=== PATIENT | female | born 1970 | race Caucasian/White ===

== ENCOUNTER 2019-10-01 13:18 | Emergency (ER) | payer OTHER ==
--- NOTE | 2019-10-01 15:26 | ED ---
Respiratory - HPI Summary HPI Summary: 49-year-old female presents with cough for the past couple days. She still very fatigued for the past 10 days. States she did come back from [facility] 3 weeks ago. She works at [employer]. Patient is exposed to a lot of people. She's been having fevers the past couple days. Has been having occasionally shortness breath. No chest pain. She's been dizzy and has sore throat. she admits to sinus congestion. - History of Current Complaint Chief Complaint: EDUpperRespComplaint Stated Complaint: SHORT OF BREATH PER EMS Time Seen by Provider: 10/01/19 13:22 Pain Intensity: 7 - Allergy/Home Medications Allergies/Adverse Reactions: Allergies Allergy/AdvReac Type Severity Reaction Status Date / Time Penicillins Allergy Rash Verified 10/01/19 13:31 Sulfa (Sulfonamide Allergy Rash Verified 10/01/19 13:31 Antibiotics) bioxin Allergy Swelling Uncoded 10/01/19 13:31 Of Face,Lips,& Throat PMH/Surg Hx/FS Hx/Imm Hx Endocrine/Hematology History: Denies: Hx Anticoagulant Therapy Respiratory History: Denies: Hx Asthma Infectious Disease History: No Infectious Disease History: Denies: Traveled Outside the [place] in Last 30 Days - Family History Known Family History: Positive: Non-Contributory - Social History Substance Use Type: Reports: None Smoking Status (MU): Never Smoked Tobacco Review of Systems Positive: Fever Negative: Chest Pain Positive: Shortness Of Breath, Cough All Other Systems Reviewed And Are Negative: Yes Physical Exam Triage Information Reviewed: Yes Vital Signs On Initial Exam: Initial Vitals Temp Pulse Resp BP Pulse Ox 98.4 F 64 16 107/81 95 10/01/19 13:27 10/01/19 13:27 10/01/19 13:27 10/01/19 13:27 10/01/19 13:27 Vital Signs Reviewed: Yes Appearance: Positive: Well-Appearing Skin: Positive: Warm, Dry Head/Face: Positive: Normal Head/Face Inspection Eyes: Positive: Normal, EOMI, GILMA, Conjunctiva Clear ENT: Positive: Normal ENT inspection, Pharynx normal, TMs normal Respiratory/Lung Sounds: Positive: Clear to Auscultation, Breath Sounds Present Cardiovascular: Positive: Normal, RRR Abdomen Description: Positive: Nontender, Soft Bowel Sounds: Positive: Present Musculoskeletal: Positive: Normal Neurological: Positive: Normal Psychiatric: Positive: Normal Procedures - Sedation Patient Received Moderate/Deep Sedation with Procedure: No Diagnostics - Vital Signs Vital Signs Temp Pulse Resp BP Pulse Ox 10/01/19 13:27 98.4 F 64 16 107/81 95 - Laboratory Lab Statement: Any lab studies that have been ordered have been reviewed, and results considered in the medical decision making process. - Radiology chest Radiology Interpretation Completed By: Radiologist Summary of Radiographic Findings: IMPRESSION: NO ACTIVE CARDIOPULMONARY DISEASE IS NOTED. Disposition - Course Course Of Treatment: 49-year-old female presents with cough for the past couple days. She still very fatigued for the past 10 days. States she did come back from [facility] 3 weeks ago. She works at [employer]. Patient is exposed to a lot of people. She's been having fevers the past couple days. Has been having occasionally shortness breath. No chest pain. She's been dizzy and has sore throat. she admits to sinus congestion. On exam lungs clear auscultation. Pharynx normal. Chest x-ray normal. sent testing for covid. Told to treat supportively and to isolate self. Patient understands and agrees with plan. - Differential Dx - Cardiopulmonary Differential Diagnoses - Cardiopulmonary: Bronchitis, Influenza, Lower Resp Infection - Diagnoses Provider Diagnoses: Viral syndrome Discharge ED - Sign-Out/Discharge Documenting (check all that apply): Patient Departure - Discharge Plan Condition: Good Disposition: HOME Forms: COVID-19 Tested & Isolation Referrals: No Primary Care Phys,NOPCP [Primary Care Provider] - Additional Instructions: You have been tested for coronavirus. The department of health will contact you with results when available and with any additional instruction. You should stay in your house and self quarantine. You should wear a mask if you're outside of your personal room. We encourage handwashing as well as limited contact with other people. Use tyenlol every 6 hours for fever Drink plenty of fluids and rest Return to ED if develop severe shortness of breath or any new or worsening symptoms - Billing Disposition and Condition Condition: GOOD Disposition: Home - Attestation Statements Provider Attestation: I was available for consultation for this patient. I did not evaluate the patient or participate in any medical decision making or disposition decisions unless I am specifically named in the chart as having consulted on the patient. If I have consulted on the patient, please see my own ED note on the patient encounter. Razia Parra MD
[2019-10-01 16:04] VITALS: BP 109/61
[2019-10-01] MEDS ORDERED: O ndansetron ODT 4MG 5TAB PRPK 4 MG PAK PO ONE ×2 (16:10)
[2019-10-01 16:45] LABS: Influenza A Molecular Negative (Negative); Influenza B Molecular Negative (Negative)
== END 2019-10-01 16:03 | disposition home or self-care (01) ==
LOC: ED 13:18
DX: B34.9 Viral infection, unspecified (principal); R06.02 Shortness of breath; Z20.828 Contact with and (suspected) exposure to other viral communicable diseases; Z88.1 Allergy status to other antibiotic agents; Z88.0 Allergy status to penicillin; Z88.2 Allergy status to sulfonamides
CPT/HCPCS: 71045; 99281; A9270-GY; U0002

== ENCOUNTER 2019-10-12 10:23 | Emergency (ER) | payer OTHER ==
--- NOTE | 2019-10-12 11:38 | UC ---
General HPI - HPI Summary HPI Summary: 49yo female presenting with complaint of being "sick for 3 weeks." Notes "extreme exhaustion," nausea, "terrible sore throat," and fevers. States fevers up to 99.9 at home. Denies nasal congestion and cough. Denies sob and wheezing. Denies chest pain/discomfort. Denies v/d and abdominal pain. Notes decreased appetite. Patient states she was seen in [facility] on 10/01/2019 for sob, dizziness, and fevers. She tested negative for covid and flu that day with negative CXR as well. Patient states she was sick for approx 12 days prior to ED visit and has just been worsening. She adds that she called her pcp via telemedicine on 2019 who prescribed her levaquin. States she is on day 6 of 7 day treatment and has not felt better at all. Patient states before symptom onset, she was active , working out, eating well, etc. States she now "feels lethargic" and is now becoming "depressed and anxious" since isolation for covid started. States she is from [place], does not have family or friends here, and is now losing her job at [employer] in November. Patient states this is making her symptoms worse. - History of Current Complaint Chief Complaint: UCGeneralIllness Stated Complaint: RESP COMPLAINT Time Seen by Provider: 10/12/19 10:39 Hx Obtained From: Patient Hx Last Menstrual Period: 10/02/19 - Allergy/Home Medications Allergies/Adverse Reactions: Allergies Allergy/AdvReac Type Severity Reaction Status Date / Time Penicillins Allergy Rash Verified 10/12/19 10:44 Sulfa (Sulfonamide Allergy Rash Verified 10/12/19 10:44 Antibiotics) bioxin Allergy Swelling Uncoded 10/12/19 10:44 Of Face,Lips,& Throat Home Medications: Home Medications Acetaminophen TAB* [Tylenol TAB*] 650 mg PO Q4H PRN 10/12/19 [History Confirmed 10/12/19] Levofloxacin TAB* [Levaquin TAB*] 500 mg PO DAILY 10/12/19 [History Confirmed ] Methocarbamol TAB* [Robaxin 500 MG TAB*] 500 mg PO TID PRN 10/12/19 [History Confirmed 10/12/19] Norethindrone AC-Eth Estradiol [Junel 1 mg-20 Mcg Tablet] 1 each PO DAILY [History Confirmed 10/12/19] PMH/Surg Hx/FS Hx/Imm Hx Previously Healthy: Yes Other History Of: Negative For: Anticoagulant Therapy - Surgical History Surgical History: Yes Surgery Procedure, Year, and Place: laparotomyx2 - Family History Known Family History: Positive: Non-Contributory - Social History Alcohol Use: Occasionally Substance Use Type: None Smoking Status (MU): Never Smoked Tobacco Review of Systems All Other Systems Reviewed And Are Negative: Yes Constitutional: Positive: Fever, Fatigue ENT: Positive: Sore Throat Respiratory: Positive: Negative Cardiovascular: Positive: Negative Gastrointestinal: Positive: Nausea Genitourinary: Positive: Negative Musculoskeletal: Positive: Negative Neurological/Mental Status: Positive: Headache Physical Exam - Summary Physical Exam Summary: Vital Signs Reviewed: Yes A+Ox3, no distress, appears fatigued, closing eyes frequently throughout visit while being questioned Eyes: Conjunctiva Clear ENT: Hearing grossly normal, TM x 2 clear, moist, uvula midline, no exudate, no erythema, +PND, no tonsillar enlargement Neck: Positive: Supple, mild tonsillar LAD Respiratory: Positive: No respiratory distress, No accessory muscle use + CTA throughout no w/r Cardiovascular: RRR nl s1, s2 no m/r Musculoskeletal Exam: LOPEZ x 4 without difficulty Neurological: Positive: Alert Psychological: Positive: age appropriate behavior Skin: Positive: no rash, no ecchymosis Vital Signs: Vital Signs (72 hours) 10/12/19 11:45 Temperature 99.4 F Pulse Rate 73 Respiratory 18 Rate Blood Pressure 96/58 (mmHg) O2 Sat by Pulse 97 Oximetry Lab Results 10/12/19 Range/Units 11:32 Group A Strep Rapid Negative (Negative) Course/Dx - Course Course Of Treatment: 49yo female presenting with complaint of being "sick for 3 weeks." Notes "extreme exhaustion," nausea, "terrible sore throat," and fevers. States fevers up to 99.9 at home. Denies nasal congestion and cough. Denies sob and wheezing. Denies chest pain/discomfort. Denies v/d and abdominal pain. Notes decreased appetite. Patient states she was seen in [facility] on 10/01/2019 for sob, dizziness, and fevers. She tested negative for covid and flu that day with negative CXR as well. Patient states she was sick for approx 12 days prior to ED visit and has just been worsening. She adds that she called her pcp via telemedicine on 2019 who prescribed her levaquin. States she is on day 6 of 7 day treatment and has not felt better at all. Patient states before symptom onset, she was active , working out, eating well, etc. States she now "feels lethargic" and is now becoming "depressed and anxious" since isolation for covid started. States she is from [place], does not have family or friends here, and is now losing her job at [employer] in November. Patient states this is making her symptoms worse. Negative rapid strep. Discussed with patient viral illness vs bacterial illness. Less concern for bacterial source given no improvement with broad spectrum antibiotic and VS WNL. Discussed possibility of mono, anxiety/depression, or thyroid disorder as well. The patient appears ill and fatigued. I discussed all potential causes of symptoms and recommended that she go to the ED for further evaluation and workup based on her appearance. Patient voiced understanding and agreed with treatment plan. Patient stated her friend was in the parking lot waiting for her and would drive her straight to ED upon departure form the urgent care. - Diagnoses Provider Diagnosis: Viral syndrome Discharge ED - Sign-Out/Discharge Documenting (check all that apply): Patient Departure All imaging exams completed and their final reports reviewed: No Studies - Discharge Plan Condition: Stable Disposition: HOME-RECOMMEND TO ED Referrals: No Primary Care Phys,NOPCP [Primary Care Provider] - Additional Instructions: The provider that evaluated you today thinks that you need additional testing that can be completed in the emergency department. It is recommended that you go directly to emergency department for further evaluation. This evaluation included blood work or imaging. This testing will be directed and decided by the provider that evaluates you at the emergency department. If pain becomes worse, you feel lightheaded, you have uncontrolled vomiting, or you have any other concerns while you are being driven to emergency department it is recommended to pullover and contact 911. - Billing Disposition and Condition Condition: STABLE Disposition: Home-Recommend to ED
[2019-10-12 11:51] VITALS: BP 96/58
== END 2019-10-12 11:55 | disposition home health service (06) ==
LOC: UCEAST 10:23
DX: B34.9 Viral infection, unspecified (principal); Z79.2 Long term (current) use of antibiotics; Z88.1 Allergy status to other antibiotic agents; Z88.0 Allergy status to penicillin; Z88.2 Allergy status to sulfonamides
CPT/HCPCS: 87651; 99212; G0463

== ENCOUNTER 2019-10-12 12:26 | Emergency (ER) | payer OTHER ==
[2019-10-12] MEDS ORDERED: Ibuprofen TAB* 600 MG PO ONE (12:57)
--- NOTE | 2019-10-12 13:03 | ED ---
HPI Febrile Illness - HPI Summary HPI Summary: 49 year old female presents to the emergency department from [facility] with a CC of sore throat, fever, nausea, fatigue x 3 weeks. Pt states she has been seen by her primary and at [facility] and had negative testing for influenza, COVID-19 and a negative chest xray. PT was placed on Levaquin by jair PCP and completed a 7 day course. Pt has been taking tylenol for fever. Pt states she is also anxious as she lost her job from COVID shut down and will lose her visa. Pt is currently resting on the stretcher and not acutely ill. Pt denies chest pain, SOB, pain with urination, rash, vomiting, diarrhea, poor oral intake of food or water. - History of Current Complaint Chief Complaint: EDFluSymptoms Time Seen by Provider: 10/12/19 12:35 Hx Obtained From: Patient Hx Last Menstrual Period: 10/02/19 Onset/Duration: Started Weeks Ago, Atraumatic Timing: Constant Initial Severity: Severe Current Severity: Severe Pain Intensity: 7 Pain Scale Used: 0-10 Numeric Associated Signs and Symptoms: Arthralgia, Chills, Headache, Myalgia, Nausea, Sore Throat - Allergy/Home Medications Allergies/Adverse Reactions: Allergies Allergy/AdvReac Type Severity Reaction Status Date / Time Penicillins Allergy Rash Verified 10/12/19 12:28 Sulfa (Sulfonamide Allergy Rash Verified 10/12/19 12:28 Antibiotics) bioxin Allergy Swelling Uncoded 10/12/19 12:28 Of Face,Lips,& Throat Home Medications: Home Medications Biotin 1 mg PO DAILY 10/12/19 [History Confirmed 10/12/19] Calcium Carbonate [Calcium] 500 mg PO DAILY 10/12/19 [History Confirmed 10/12/19 ] Cholecalciferol TAB* [Vitamin D TAB*] 1,000 unit PO DAILY 10/12/19 [History Confirmed 10/12/19] Cyanocobalamin TAB* [Vitamin B12 TAB*] 500 mcg PO DAILY 10/12/19 [History Confirmed 10/12/19] Ferrous Gluconate TAB* [Fergon TAB*] 325 mg PO DAILY 10/12/19 [History Confirmed 10/12/19] Levofloxacin TAB* [Levaquin TAB*] 500 mg PO DAILY 10/12/19 [History Confirmed ] Magnesium Oxide TAB* [MagOx 400 TAB*] 1 tab PO DAILY 10/12/19 [History Confirmed 10/12/19] Methocarbamol TAB* [Robaxin 500 MG TAB*] 500 mg PO BID PRN 10/12/19 [History Confirmed 10/12/19] Mv-Min/Vit C/Glut/Lysine/Hb124 [Immune Support Chewable Tablet] 1 tab PO DAILY 10/12/19 [History Confirmed 10/12/19] Norethindrone AC-Eth Estradiol [Junel 1 mg-20 Mcg Tablet] 1 each PO DAILY [History Confirmed 10/12/19] Oregano Oil [Oil of Oregano] 1,500 mg PO DAILY 10/12/19 [History Confirmed 10/11] hydrOXYzine HCL TAB* [Atarax TAB 50 MG *] 50 mg PO QID #12 tab 10/12/19 [Rx] PMH/Surg Hx/FS Hx/Imm Hx Endocrine/Hematology History: Denies: Hx Anticoagulant Therapy Respiratory History: Denies: Hx Asthma - Surgical History Surgery Procedure, Year, and Place: laparotomyx2 Infectious Disease History: No Infectious Disease History: Denies: Traveled Outside the [place] in Last 30 Days - Family History Known Family History: Positive: Non-Contributory - Social History Alcohol Use: Occasionally Substance Use Type: Reports: None Smoking Status (MU): Never Smoked Tobacco Review of Systems Positive: Fever, Fatigue Eyes: Negative Positive: Sore Throat. Negative: Nasal Discharge Cardiovascular: Negative Respiratory: Negative Positive: Nausea. Negative: Vomiting, Diarrhea Genitourinary: Negative Positive: Arthralgia, Myalgia Skin: Negative Neurological/Mental Status: Negative Positive: Anxious. Negative: Depressed All Other Systems Reviewed And Are Negative: Yes Physical Exam - Summary Physical Exam Summary: Pt in no acute distress but appears fatigued. There is anterior cervical lymphadenopathy. Pharynx erythematous. Triage Information Reviewed: Yes Vital Signs On Initial Exam: Initial Vitals Temp Pulse Resp BP Pulse Ox 99.3 F 61 18 115/69 99 10/12/19 12:27 10/12/19 12:27 10/12/19 12:27 10/12/19 12:27 10/12/19 12:27 Vital Signs Reviewed: Yes Appearance: Positive: Well-Appearing, No Pain Distress, Well-Nourished Skin: Positive: Warm, Skin Color Reflects Adequate Perfusion Eyes: Positive: EOMI, GILMA ENT: Positive: Hearing grossly normal Respiratory/Lung Sounds: Positive: Clear to Auscultation, Breath Sounds Present Cardiovascular: Positive: RRR, S1, S2 Abdomen Description: Positive: Nontender, Soft Bowel Sounds: Positive: Present Musculoskeletal: Positive: Strength/ROM Intact Neurological: Positive: Sensory/Motor Intact, Alert, Oriented to Person Place, Time, Normal Gait, Facial Symmetry, Speech Normal Psychiatric: Positive: Normal, Anxious AVPU Assessment: Alert Procedures - Sedation Patient Received Moderate/Deep Sedation with Procedure: No Diagnostics - Vital Signs Vital Signs Temp Pulse Resp BP Pulse Ox 10/12/19 12:27 99.3 F 61 18 115/69 99 - Laboratory Result Diagrams: 10/12/19 13:08 10/12/19 13:08 Lab Statement: Any lab studies that have been ordered have been reviewed, and results considered in the medical decision making process. Course/Dx - Course Course Of Treatment: Pt evaluated for fever and fatigue x 3 weeks. Pt vitals noted. No evidence of dehydration. Labs returned showing no significant leukocytosis, anemia, electrolyte disturbance. Negative monospot. Urinalysis shows no evidence of urinary tract infection or proteinuria. Blood cultures are obtained to investigate possible source of infection. Chest x-ray was deemed unnecessary as she had a negative chest x-ray approximately 2 weeks ago. Patient is likely experiencing viral syndrome and does not require medical intervention at this time. Patient discharged to outpatient follow-up. - Febrile Illness Differential Diagnoses: Fever of Unknown Origin, Viremia, Other: - influenza, mononucleosis - Diagnoses Provider Diagnoses: Fever Discharge ED - Sign-Out/Discharge Documenting (check all that apply): Patient Departure - Discharge Plan Condition: Stable Disposition: HOME Prescriptions: hydrOXYzine HCL TAB* [Atarax TAB 50 MG *] 50 mg PO QID #12 tab Patient Education Materials: Fever in Adults (ED) Referrals: No Primary Care Phys,NOPCP [Primary Care Provider] - Care [facility] [Outside] - 3 Days Additional Instructions: Please continue to take ibuprofen 600 mg every 6 hours alternated with acetaminophen 650 mg every 6 hours as needed for fever. Please follow-up with your primary care provider in 3-5 days for further evaluation and management. Your workup today in the emergency department showed no significant medical problem requiring intervention at this time. Your symptoms are likely due to a virus. Please return to the emergency department immediately should you develop any new or worsening symptoms. Please take hydroxyzine as directed for anxiety. - Billing Disposition and Condition Condition: STABLE Disposition: Home
[2019-10-12 13:17] LABS: ABS Eosinophils 0.1 10^3/ul (0-0.6); ABS Lymphocytes 1.3 10^3/ul (1.0-4.8); ABS Monocytes 0.4 10^3/ul (0-0.8); ABS Neutrophils 4.3 10^3/ul (1.5-7.7); Eosinophil % 1.7 %; Hematocrit 40 % (35-47); Hemoglobin 13.7 g/dL (12.0-16.0); Mean Corpuscular HGB Conc 34 g/dL (31-36); Mean Corpuscular Hemoglobin 29 pg (27-31); Mean Corpuscular Volume 84 fL (80-97); Mean Platelet Volume 8.9 fL (7.4-10.4); Platelet Count 188 10^3/uL (150-450); Red Cell Distribution Width 14 % (10-15); White Blood Count 6.1 10^3/uL (3.5-10.8)
[2019-10-12 13:44] LABS: ALT 14 U/L (7-52); AST 17 U/L (13-39); Albumin 4.2 g/dL (3.2-5.2); Albumin/Globulin Ratio 1.4 (1-3); Alkaline Phosphatase 25 U/L (34-104); Anion Gap 6 mmol/L (2-11); Blood Urea Nitrogen 9 mg/dL (6-24); C Reactive Protein < 1.00 mg/L (<8.01); CO2 Carbon Dioxide 26 mmol/L (22-32); Chloride 104 mmol/L (101-111); EGFR African American 80.9 (>60); EGFR Non-African American 66.8 (>60); Glucose 119 mg/dL (70-100); Potassium 4.1 mmol/L (3.5-5.0); Sodium 136 mmol/L (135-145); Total Protein 7.2 g/dL (6.4-8.9)
[2019-10-12] MEDS ORDERED: Meclizine TAB* 12.5 MG PO ONE (14:57)
[2019-10-12 15:03] LABS: Urine Appearance Clear; Urine Bilirubin Negative (Negative); Urine Blood 1+ (Negative); Urine Color Straw; Urine Glucose Negative (Negative); Urine Ketones Negative (Negative); Urine Nitrite Negative (Negative); Urine Protein Negative (Negative); Urine Specific Gravity 1.004 (1.010-1.030); Urine Urobilinogen Negative (Negative)
[2019-10-12 15:10] LABS: Urine Bacteria Absent (Absent); Urine Red Blood Cell Trace(0-2/hpf) (Absent); Urine White Blood Cell Absent (Absent)
[2019-10-12 15:49] VITALS: BP 100/67
== END 2019-10-12 15:48 | disposition home or self-care (01) ==
LOC: ED 12:26
DX: J02.9 Acute pharyngitis, unspecified (principal); R50.9 Fever, unspecified; R11.0 Nausea; R53.83 Other fatigue; F41.9 Anxiety disorder, unspecified; Z88.2 Allergy status to sulfonamides; Z88.0 Allergy status to penicillin; Z79.899 Other long term (current) drug therapy
CPT/HCPCS: 36415; 80053; 81003; 81015; 85025; 86140; 86308; 87040; 99283; A9270-GY